=== PATIENT | male | born 1950 | race African-American/Black ===

== ENCOUNTER 2016-06-02 12:55 | Inpatient (IN) | payer MEDICARE, MEDICAID ==
[~2016-06-02] VITALS: Ht 170.2 cm; Wt 90.7 kg
[~2016-06-02 12:55] MED LIST: CARV6.2548 PO; CITA10SO6 PO; CLON0.1P2 TD; CLOP75TA33 PO; HYDR100T26 PO; SIMV20TA6 PO
[2016-06-02 15:32] LABS: BASOPHILS % 0.7 % (0.0-2.0); EOSINOPHILS % 2.1 % (0.0-5.0); HEMATOCRIT. 33.9 % (42.0-52.0); HEMOGLOBIN. 11.3 g/dL (14.0-18.0); LYMPHOCYTES % 12.4 % (20.0-50.0); MEAN CORPUSCULAR HEMOGLOBIN 30.6 pg (28.0-32.0); MEAN CORPUSCULAR HGB CONC 33.3 g/dL (31.0-37.0); MEAN CORPUSCULAR VOLUME 92.1 fL (80.0-94.0); MEAN PLATELET VOLUME 9.8 fl (7.4-10.4); MONOCYTES % 6.5 % (2.0-8.0); NEUTROPHILS % 78.3 % (40.0-76.0); PLATELET 79 x1000/uL (130-400); RED BLOOD CELL COUNT 3.68 mill/uL (4.7-6.1); RED CELL DISTRIBUTION WIDTH 15.7 % (11.6-14.6); WHITE BLOOD COUNT 7.8 x1000/uL (4.5-11.0)
[2016-06-02 15:39] LABS: INR 1.1; PARTIAL THROMBOPLASTIN TIME 27.8 sec (24.0-34.0); PROTHROMBIN TIME 11.6 sec
[2016-06-02 15:45] LABS: ALANINE AMINOTRANSFERASE 9 IU/L (13-61); ALBUMIN 2.8 g/dL (3.4-5.0); ANION GAP 14; CALCIUM 8.3 mg/dL (8.5-10.1); CARBON DIOXIDE 31 mEq/L (21-32); CHLORIDE 93 mEq/L (98-107); INDEX HEMOLYSI 3 (1-3); INDEX ICTERIC 1 (1-4); INDEX LIPEMIC 1 (1-3); LIPASE 143 IU/L (73-393); UREA NITROGEN BLOOD 13 mg/dL (7-21)
[2016-06-02 15:50] LABS: CREATINE KINASE 55 IU/L (39-308); NT PRO B-TYPE NATRIURETIC PEP 24393 pg/mL (5-125); TROPONIN I 0.06 ng/mL (0.00-0.04); eGFR 22 mL/min (>60)
[2016-06-02] MEDS ORDERED: ONDANSETRON HCL 4MG/2ML VIAL IV ONE (16:00)
[2016-06-02] MEDS ORDERED: ASPIRIN 325MG EC TABLET PO ONE (16:30)
[2016-06-02 19:30] VITALS: BP 152/79
[2016-06-02 20:00] VITALS: BP 152/70
[2016-06-02] MEDS ORDERED: SEVE800T8 PO (20:07)
[2016-06-02] MEDS ORDERED: LORAZEPAM 2MG/ML CPJ IV PRN (22:00)
[2016-06-02] MEDS ORDERED: ACETAMINOPHEN 650MG/20.3ML UDC GT PRN (22:00)
[2016-06-02] MEDS ORDERED: HYDROMORPHONE HCL/PF 2MG/ML CPJ IV PRN (22:00)
[2016-06-02] MEDS ORDERED: ONDANSETRON HCL 4MG/2ML VIAL IV PRN (22:00)
[2016-06-02] MEDS: CARVEDILOL 6.25 MG TABLET PO SCH (22:11)
[2016-06-03] VITALS: BP 154/83
[2016-06-03 04:00] VITALS: BP 166/72
[2016-06-03 05:59] LABS: BASOPHILS % 0.7 % (0.0-2.0); EOSINOPHILS % 8.5 % (0.0-5.0); HEMOGLOBIN. 9.5 g/dL (14.0-18.0); LYMPHOCYTES % 30.6 % (20.0-50.0); MEAN CORPUSCULAR HEMOGLOBIN 29.7 pg (28.0-32.0); MEAN CORPUSCULAR HGB CONC 32.7 g/dL (31.0-37.0); MEAN CORPUSCULAR VOLUME 90.9 fL (80.0-94.0); MEAN PLATELET VOLUME 9.5 fl (7.4-10.4); MONOCYTES % 11.3 % (2.0-8.0); NEUTROPHILS % 48.9 % (40.0-76.0); PLATELET 77 x1000/uL (130-400); RED BLOOD CELL COUNT 3.19 mill/uL (4.7-6.1); WHITE BLOOD COUNT 5.8 x1000/uL (4.5-11.0)
[2016-06-03 07:04] LABS: CALCIUM 8.4 mg/dL (8.5-10.1); MAGNESIUM 2.4 mg/dL (1.8-2.4); TROPONIN I 0.07 ng/mL (0.00-0.04)
[2016-06-03 08:00] VITALS: BP 160/65
[2016-06-03] MEDS ORDERED: ENOXAPARIN 30MG/0.3ML SYR SUBCUT SCH (09:00)
[2016-06-03] MEDS: SEVELAMER CARBONATE 800 MG TABLET PO SCH ×3 (09:23→17:14)
[2016-06-03] MEDS: CARVEDILOL 6.25 MG TABLET PO SCH (09:23)
[2016-06-03] MEDS: HYDRALAZINE HCL 100MG TABLET PO SCH ×3 (09:23→17:14)
[2016-06-03] MEDS: CLOPIDOGREL 75MG TABLET PO SCH (09:23)
[2016-06-03 12:00] VITALS: BP 156/68
[2016-06-03] MEDS ORDERED: VANCOMYCIN 1500MG in DEXTROSE 5% WATER 250ML IV SCH (14:00)
[2016-06-03 16:00] VITALS: BP 149/68
[2016-06-03 20:05] VITALS: BP 158/72
[2016-06-04] VITALS (7 sets, daily range): BP systolic 132–176; BP diastolic 75–95
[2016-06-04] MEDS: HYDRALAZINE HCL 100MG TABLET PO SCH ×3 (05:57→16:49)
[2016-06-04] MEDS ORDERED: CLONIDINE 0.1MG TABLET PO PRN ×2 (07:30→12:00)
[2016-06-04] MEDS: SEVELAMER CARBONATE 800 MG TABLET PO SCH ×3 (09:07→16:51)
[2016-06-04] MEDS: CLONIDINE 0.1MG TABLET PO SCH ×2 (09:09→21:00)
[2016-06-04] MEDS: CARVEDILOL 6.25 MG TABLET PO SCH (09:09)
[2016-06-04] MEDS: CLOPIDOGREL 75MG TABLET PO SCH (09:09)
[2016-06-04 09:50] LABS: T4 FREE 1.35 ng/dL (0.76-1.46); THYROID STIMULATING HORMONE 1.2 uIU/mL (0.36-3.74)
[2016-06-04] MEDS: LOSARTAN POTASSIUM 100 MG TABLET PO SCH (10:50)
[2016-06-04 16:21] LABS: CREATINE KINASE MB FRACTION 1.1 ng/mL (0.5-3.6); TROPONIN I 0.05 ng/mL (0.00-0.04)
[2016-06-04] MEDS ORDERED: EPOETIN ALFA 4000UNITS/ML VIAL SUBCUT SCH (21:00)
[2016-06-04] MEDS: ASCORBIC ACID 250 MG TABLET PO SCH (21:38)
[2016-06-05] VITALS: BP 146/65
[2016-06-05 00:10] LABS: CREATINE KINASE MB FRACTION 1.3 ng/mL (0.5-3.6); TROPONIN I 0.05 ng/mL (0.00-0.04)
[2016-06-05 04:00] VITALS: BP 157/84
[2016-06-05 06:33] LABS: EOSINOPHILS % 10.9 % (0.0-5.0); HEMATOCRIT. 29.6 % (42.0-52.0); HEMOGLOBIN. 9.7 g/dL (14.0-18.0); LYMPHOCYTES % 24.7 % (20.0-50.0); MEAN CORPUSCULAR HGB CONC 32.6 g/dL (31.0-37.0); MEAN CORPUSCULAR VOLUME 91.9 fL (80.0-94.0); MEAN PLATELET VOLUME 9.6 fl (7.4-10.4); MONOCYTES % 10.6 % (2.0-8.0); NEUTROPHILS % 52.8 % (40.0-76.0); PLATELET 96 x1000/uL (130-400); RED BLOOD CELL COUNT 3.23 mill/uL (4.7-6.1); RED CELL DISTRIBUTION WIDTH 15.9 % (11.6-14.6)
[2016-06-05 06:51] LABS: CALCIUM 8.6 mg/dL (8.5-10.1); CREATINE KINASE MB FRACTION 0.7 ng/mL (0.5-3.6); PHOSPHORUS 3.3 mg/dL (2.5-4.9); TROPONIN I 0.04 ng/mL (0.00-0.04)
[2016-06-05 08:00] VITALS: BP 144/71
[2016-06-05] MEDS: SEVELAMER CARBONATE 800 MG TABLET PO SCH ×2 (08:39→13:29)
[2016-06-05] MEDS: CLONIDINE 0.1MG TABLET PO SCH (08:39)
[2016-06-05] MEDS: ASCORBIC ACID 250 MG TABLET PO SCH (08:40)
[2016-06-05] MEDS: HYDRALAZINE HCL 100MG TABLET PO SCH ×2 (08:40→13:32)
[2016-06-05] MEDS: CARVEDILOL 6.25 MG TABLET PO SCH (08:40)
[2016-06-05] MEDS: LOSARTAN POTASSIUM 100 MG TABLET PO SCH (08:40)
[2016-06-05] MEDS: CLOPIDOGREL 75MG TABLET PO SCH (08:40)
[2016-06-05] MEDS ORDERED: ZINC SULFATE 220 MG ( 50 ) CAPSULE PO SCH (09:00)
[2016-06-05] MEDS ORDERED: FOLIC ACID/VITAMIN B COMP W-C TABLET PO SCH (09:00)
[2016-06-05] MEDS ORDERED: CLON0.1T14 PO (10:17)
[2016-06-05] MEDS ORDERED: LOSA100T11 PO (10:17)
[2016-06-05] MEDS ORDERED: NEPVIT PO (10:17)
[2016-06-05 11:29] VITALS: BP 149/89
[2016-06-05 12:00] VITALS: BP 145/83
[2016-06-05] MEDS ORDERED: VANCOMYCIN 1 G PREMIX 200 ML IV SCH (18:00)
== END 2016-06-05 13:50 | disposition home or self-care (01) | DRG 314 ==
LOC: ER 13:10 → 7WST 17:09
PROVIDERS: ADMIT Internal Medicine Nephrology; ATTEND Internal Medicine Nephrology
PROC: 5A1D60Z (ICD-10-PCS; principal; 2016-06-04)
DX: T82.838A Hemorrhage due to vascular prosthetic devices, implants and grafts, initial encounter (principal); N18.6 End stage renal disease; I12.0 Hypertensive chronic kidney disease with stage 5 chronic kidney disease or end stage renal disease; I42.9 Cardiomyopathy, unspecified; D63.8 Anemia in other chronic diseases classified elsewhere; D69.6 Thrombocytopenia, unspecified; E11.22 Type 2 diabetes mellitus with diabetic chronic kidney disease; I25.10 Atherosclerotic heart disease of native coronary artery without angina pectoris; E78.5 Hyperlipidemia, unspecified; Y84.1 Kidney dialysis as the cause of abnormal reaction of the patient, or of later complication, without mention of misadventure at the time of the procedure; F03.90 Unspecified dementia, unspecified severity, without behavioral disturbance, psychotic disturbance, mood disturbance, and anxiety; I27.2 Other secondary pulmonary hypertension; I35.0 Nonrheumatic aortic (valve) stenosis; Z99.2 Dependence on renal dialysis; Z86.73 Personal history of transient ischemic attack (TIA), and cerebral infarction without residual deficits; Z86.79 Personal history of other diseases of the circulatory system; Z79.899 Other long term (current) drug therapy
CPT/HCPCS: 36415; 71010; 80048; 80053; 80061; 80202; 82550; 82553; 82962; 83036; 83605; 83690; 83735; 83880; 84100; 84439; 84443; 84484; 85025; 85379; 85610; 85730; 87040; 93005; 93306; 99285; J0885; J3370; J7060

== ENCOUNTER 2020-01-25 10:57 | Inpatient (IN) | payer MEDICARE, MEDICAID ==
[~2020-01-25] VITALS: Ht 177.8 cm; Wt 66.7 kg
[~2020-01-25 10:57] MED LIST changes: -CARV6.2548 PO; -CITA10SO6 PO; -CLON0.1P2 TD; +CLON0.1T14 PO; -CLOP75TA33 PO; +HYDR100T26 MT; -HYDR100T26 PO; +LOSA100T3 PO; +NEPVIT PO; +SIMV10TA97 MT; -SIMV20TA6 PO
[2020-01-25] MEDS ORDERED: SODIUM CHLORIDE 0.9% 1,000 ML IV ONE (12:00)
[2020-01-25 12:38] LABS: HEMATOCRIT. 33.9 % (42.0-52.0); HEMOGLOBIN. 11.2 g/dL (14.0-18.0); MEAN CORPUSCULAR HEMOGLOBIN 32.7 pg (28.0-32.0); MEAN CORPUSCULAR VOLUME 98.6 fL (80.0-94.0); PLATELET 100 x1000/uL (130-400); RED BLOOD CELL COUNT 3.44 mill/uL (4.7-6.1); RED CELL DISTRIBUTION WIDTH 15.3 % (11.6-14.6)
[2020-01-25 12:44] LABS: CHLORIDE 98 mEq/L (98-107)
[2020-01-25 13:21] LABS: PLATELET ESTIMATE SLIGHTLY DECREASED
[2020-01-25] MEDS ORDERED: ASPIRIN 325MG EC TABLET PO ONE (15:15)
[2020-01-25] MEDS ORDERED: PIPERACILLIN/TAZ 3.375G PREMIX 50 ML IV ONE (15:30)
[2020-01-25] MEDS ORDERED: VANCOMYCIN 1 G PREMIX 200 ML IV ONE (15:30)
[2020-01-26] MEDS ORDERED: LORAZEPAM 2MG/ML CPJ IV PRN (09:15)
[2020-01-26] MEDS ORDERED: HYDROCODONE/ACETAMINOPHEN 5/325MG TABLET PO PRN (09:15)
[2020-01-26] MEDS ORDERED: MAGNESIUM/ALUMINUM HYDROXIDE/SIMETHICONE 30ML UDC PO PRN (09:15)
[2020-01-26] MEDS ORDERED: ONDANSETRON HCL 4MG/2ML INJ IV PRN (09:15)
[2020-01-26] MEDS ORDERED: IPRATROPIUM/ALBUTEROL 0.5-3(2.5)MG/3ML NEB NEB PRN (09:15)
[2020-01-26] MEDS: ENOXAPARIN 30MG/0.3ML SYR SUBCUT SCH ×2 (10:00→10:26)
[2020-01-26] MEDS: THIAMINE HCL 100MG TABLET PO SCH (10:36)
[2020-01-26] MEDS ORDERED: CEFTRIAXONE 1 G PREMIX 50 ML IV SCH (12:00)
[2020-01-26 12:51] VITALS: BP 174/72
[2020-01-26 13:00] VITALS: BP 174/72
[2020-01-26] MEDS: HYDRALAZINE HCL 100MG TABLET PO SCH (14:00)
[2020-01-26] MEDS ORDERED: HYDRALAZINE HCL 25MG TABLET PO SCH (14:00)
[2020-01-26] MEDS: LOSARTAN POTASSIUM 100 MG TABLET PO SCH (14:30)
[2020-01-26 16:00] VITALS: BP 156/65
[2020-01-26] MEDS: AZITHROMYCIN 250 MG TABLET PO SCH (16:37)
[2020-01-26] MEDS ORDERED: CEFTRIAXONE 1,000 MG in DEXTROSE 5% WATER 50 ML IV SCH (17:00)
[2020-01-26 20:00] VITALS: BP 154/52
[2020-01-26] MEDS ORDERED: VANCOMYCIN 500 MG PREMIX 100 ML IV NR (20:00)
[2020-01-27] VITALS: BP_SYST 139; BP_SYST 156; BP_DIAS 54; BP_DIAS 66
[2020-01-27] MEDS: HYDRALAZINE HCL 100MG TABLET PO SCH ×4 (01:04→22:16)
[2020-01-27 04:00] VITALS: BP 156/66
[2020-01-27 07:46] VITALS: BP 155/81
[2020-01-27] MEDS: AZITHROMYCIN 250 MG TABLET PO SCH ×2 (09:00→09:29)
[2020-01-27] MEDS: LOSARTAN POTASSIUM 100 MG TABLET PO SCH ×2 (09:00→09:29)
[2020-01-27] MEDS: THIAMINE HCL 100MG TABLET PO SCH (09:00)
[2020-01-27 09:39] LABS: HEMATOCRIT. 30.5 % (42.0-52.0); MEAN CORPUSCULAR HEMOGLOBIN 32.1 pg (28.0-32.0); MEAN CORPUSCULAR VOLUME 97.5 fL (80.0-94.0); MEAN PLATELET VOLUME 8.8 fl (7.4-10.4); PLATELET 144 x1000/uL (130-400); RED BLOOD CELL COUNT 3.13 mill/uL (4.7-6.1); RED CELL DISTRIBUTION WIDTH 15.9 % (11.6-14.6)
[2020-01-27 10:20] LABS: PLATELET ESTIMATE NORMAL
[2020-01-27 12:00] VITALS: BP 147/45
[2020-01-27] MEDS ORDERED: VANCOMYCIN 500 MG PREMIX 100 ML IV NR (12:00)
[2020-01-27] MEDS ORDERED: POTASSIUM CHLORIDE INJ 40 MEQ in DEXT 5% WATER 250 ML IV SCH (13:00)
[2020-01-27] MEDS ORDERED: DIATR MEGLU/DIATRIZOATE SOLN 30ML PO SCH (15:45)
[2020-01-27 16:00] VITALS: BP 138/38
[2020-01-27 20:00] VITALS: BP 159/50
[2020-01-27] MEDS ORDERED: CEFTRIAXONE 1,000 MG in DEXTROSE 5% WATER 50 ML IV SCH (21:00)
[2020-01-28] VITALS: BP 133/44
[2020-01-28 04:00] VITALS: BP 137/51
[2020-01-28 06:53] LABS: HEMOGLOBIN. 9.9 g/dL (14.0-18.0); MEAN CORPUSCULAR HEMOGLOBIN 32.3 pg (28.0-32.0); MEAN CORPUSCULAR VOLUME 97.7 fL (80.0-94.0); MEAN PLATELET VOLUME 8.9 fl (7.4-10.4); PLATELET 123 x1000/uL (130-400); RED BLOOD CELL COUNT 3.08 mill/uL (4.7-6.1)
[2020-01-28] MEDS: HYDRALAZINE HCL 100MG TABLET PO SCH ×3 (07:03→21:02)
[2020-01-28 08:00] VITALS: BP 138/65
[2020-01-28] MEDS: THIAMINE HCL 100MG TABLET PO SCH (09:25)
[2020-01-28] MEDS: LOSARTAN POTASSIUM 100 MG TABLET PO SCH (09:25)
[2020-01-28] MEDS: AZITHROMYCIN 250 MG TABLET PO SCH (09:25)
[2020-01-28 11:30] LABS: PLATELET ESTIMATE SLIGHTLY DECREASED
[2020-01-28 12:00] VITALS: BP 132/71
[2020-01-28] MEDS: ACETYLCYSTEINE 100MG/ML 10% VIAL 4ML INH SCH ×2 (12:42→21:47)
[2020-01-28] MEDS: IPRATROPIUM/ALBUTEROL 0.5-3(2.5)MG/3ML NEB HHN SCH ×2 (12:42→21:47)
[2020-01-28] MEDS ORDERED: BISACODYL 10MG SUPP PR NR (13:00)
[2020-01-28] MEDS ORDERED: LACTULOSE 20G/30ML UDC PO SCH (14:00)
[2020-01-28 16:00] VITALS: BP 131/51
[2020-01-28] MEDS: CEFEPIME 1,000 MG in DEXTROSE 5% WATER 50 ML IV SCH (17:59)
[2020-01-28 20:00] VITALS: BP 138/57
[2020-01-29] VITALS (7 sets, daily range): BP systolic 112–155; BP diastolic 40–78
[2020-01-29] MEDS: IPRATROPIUM/ALBUTEROL 0.5-3(2.5)MG/3ML NEB HHN SCH ×4 (02:31→21:44)
[2020-01-29] MEDS: HYDRALAZINE HCL 100MG TABLET PO SCH ×3 (05:57→20:51)
[2020-01-29 06:40] LABS: HEMATOCRIT. 28.9 % (42.0-52.0); HEMOGLOBIN. 9.8 g/dL (14.0-18.0); MEAN CORPUSCULAR VOLUME 96.9 fL (80.0-94.0); MEAN PLATELET VOLUME 8.4 fl (7.4-10.4); PLATELET 149 x1000/uL (130-400); RED BLOOD CELL COUNT 2.98 mill/uL (4.7-6.1)
[2020-01-29] MEDS: ACETYLCYSTEINE 100MG/ML 10% VIAL 4ML INH SCH ×3 (07:52→21:44)
[2020-01-29] MEDS: AZITHROMYCIN 250 MG TABLET PO SCH (08:44)
[2020-01-29] MEDS: LOSARTAN POTASSIUM 100 MG TABLET PO SCH (08:44)
[2020-01-29] MEDS: THIAMINE HCL 100MG TABLET PO SCH (08:44)
[2020-01-29 08:50] LABS: PLATELET ESTIMATE NORMAL
[2020-01-29] MEDS: CEFEPIME 1,000 MG in DEXTROSE 5% WATER 50 ML IV SCH (13:19)
[2020-01-29] MEDS ORDERED: VANCOMYCIN 750 MG PREMIX 150 ML IV SCH (18:00)
[2020-01-30] VITALS: BP 151/54
[2020-01-30] MEDS: IPRATROPIUM/ALBUTEROL 0.5-3(2.5)MG/3ML NEB HHN SCH ×4 (02:00→21:45)
[2020-01-30 04:00] VITALS: BP 139/50
[2020-01-30] MEDS: HYDRALAZINE HCL 100MG TABLET PO SCH ×3 (05:30→21:04)
[2020-01-30 07:30] LABS: HEMATOCRIT. 28.1 % (42.0-52.0); HEMOGLOBIN. 9.3 g/dL (14.0-18.0); MEAN CORPUSCULAR HEMOGLOBIN 32.7 pg (28.0-32.0); MEAN CORPUSCULAR VOLUME 98.5 fL (80.0-94.0); MEAN PLATELET VOLUME 8.8 fl (7.4-10.4); PLATELET 124 x1000/uL (130-400); RED BLOOD CELL COUNT 2.85 mill/uL (4.7-6.1); RED CELL DISTRIBUTION WIDTH 15.9 % (11.6-14.6)
[2020-01-30 08:00] VITALS: BP 146/47
[2020-01-30] MEDS: ACETYLCYSTEINE 100MG/ML 10% VIAL 4ML INH SCH ×3 (08:30→21:45)
[2020-01-30] MEDS: LOSARTAN POTASSIUM 100 MG TABLET PO SCH (09:56)
[2020-01-30] MEDS: AZITHROMYCIN 250 MG TABLET PO SCH (09:56)
[2020-01-30] MEDS: THIAMINE HCL 100MG TABLET PO SCH (09:56)
[2020-01-30 12:00] VITALS: BP 146/56
[2020-01-30] MEDS: CEFEPIME 1,000 MG in DEXTROSE 5% WATER 50 ML IV SCH (13:13)
[2020-01-30 14:17] LABS: PLATELET ESTIMATE SLIGHTLY DECREASED
[2020-01-30 16:00] VITALS: BP 106/50
[2020-01-30 20:00] VITALS: BP 156/56
[2020-01-31] VITALS: BP 147/59
[2020-01-31] MEDS: IPRATROPIUM/ALBUTEROL 0.5-3(2.5)MG/3ML NEB HHN SCH ×3 (02:43→14:31)
[2020-01-31 04:00] VITALS: BP 159/65
[2020-01-31] MEDS: HYDRALAZINE HCL 100MG TABLET PO SCH ×2 (05:35→14:38)
[2020-01-31 08:00] VITALS: BP 146/50
[2020-01-31] MEDS: LOSARTAN POTASSIUM 100 MG TABLET PO SCH (08:15)
[2020-01-31] MEDS: THIAMINE HCL 100MG TABLET PO SCH (08:22)
[2020-01-31 12:04] VITALS: BP 164/49
[2020-01-31] MEDS: CEFEPIME 1,000 MG in DEXTROSE 5% WATER 50 ML IV SCH (14:31)
[2020-01-31 16:00] VITALS: BP 133/76
[2020-01-31 16:14] VITALS: BP 133/76
== END 2020-01-31 16:05 | disposition home or self-care (01) | DRG 871 ==
LOC: ER 11:12 → 7EST 15:24 → EDBEDREQSVC 15:35 → EDBEDREQTM 15:46 → EDBEDREQ 15:46 → EDBEDREQSVC 01-26 09:54 → ENRESERV 01-26 12:03 → 8WST 01-26 18:47
PROVIDERS: ADMIT Internal Medicine Nephrology; ATTEND Internal Medicine Nephrology
PROC: 5A1D70Z Performance of Urinary Filtration, Intermittent, Less than 6 Hours Per Day (ICD-10-PCS; principal; 2020-01-27)
DX: A41.89 Other specified sepsis (principal); I21.A1 Myocardial infarction type 2; I50.33 Acute on chronic diastolic (congestive) heart failure; N18.6 End stage renal disease; J18.9 Pneumonia, unspecified organism; E44.0 Moderate protein-calorie malnutrition; I13.2 Hypertensive heart and chronic kidney disease with heart failure and with stage 5 chronic kidney disease, or end stage renal disease; G95.29 Other cord compression; B96.89 Other specified bacterial agents as the cause of diseases classified elsewhere; D69.6 Thrombocytopenia, unspecified; E11.22 Type 2 diabetes mellitus with diabetic chronic kidney disease; D64.9 Anemia, unspecified; E78.5 Hyperlipidemia, unspecified; E83.52 Hypercalcemia; F03.90 Unspecified dementia, unspecified severity, without behavioral disturbance, psychotic disturbance, mood disturbance, and anxiety; I25.10 Atherosclerotic heart disease of native coronary artery without angina pectoris; I27.20 Pulmonary hypertension, unspecified; M48.02 Spinal stenosis, cervical region; Z86.73 Personal history of transient ischemic attack (TIA), and cerebral infarction without residual deficits; B95.7 Other staphylococcus as the cause of diseases classified elsewhere; K56.41 Fecal impaction; R00.1 Bradycardia, unspecified; Z20.828 Contact with and (suspected) exposure to other viral communicable diseases; Z79.899 Other long term (current) drug therapy; Z95.1 Presence of aortocoronary bypass graft; Z99.2 Dependence on renal dialysis; Z68.21 Body mass index [BMI] 21.0-21.9, adult
CPT/HCPCS: 36415; 71045; 74176; 80048; 80053; 80202; 82550; 83605; 83615; 84145; 84484; 85025; 85651; 86140; 87077; 87186; 87635; 92610; 93005; 93306; 99291; J0692; J0696; J1650; J2543; J3370; J3480; J7030; J7040; J7060; J7608; Q9963

== ENCOUNTER 2020-02-04 02:21 | Inpatient (IN) | payer MEDICARE, MEDICAID ==
[~2020-02-04] VITALS: Ht 154.9 cm; Wt 49.0 kg
[2020-02-04] MEDS ORDERED: SODIUM CHLORIDE 0.9% 250 ML IV ONE (03:15)
[2020-02-04 03:36] LABS: BASOPHILS % 0.6 % (0.0-2.0); EOSINOPHILS % 2.3 % (0.0-5.0); HEMATOCRIT. 30.9 % (42.0-52.0); HEMOGLOBIN. 10.2 g/dL (14.0-18.0); MEAN CORPUSCULAR HEMOGLOBIN 31.8 pg (28.0-32.0); MEAN CORPUSCULAR VOLUME 96.1 fL (80.0-94.0); MONOCYTES % 8.3 % (2.0-8.0); NEUTROPHILS % 80.8 % (40.0-76.0); PLATELET 122 x1000/uL (130-400); RED BLOOD CELL COUNT 3.21 mill/uL (4.7-6.1); RED CELL DISTRIBUTION WIDTH 15.9 % (11.6-14.6)
[2020-02-04 03:51] LABS: CHLORIDE 106 mEq/L (98-107)
[2020-02-04] MEDS ORDERED: LEVOFLOXACIN 500MG PREMIX 100 ML IV ONE (05:00)
[2020-02-04 09:40] VITALS: BP 120/60
[2020-02-04 12:00] VITALS: BP 108/61
[2020-02-04] MEDS ORDERED: ONDANSETRON HCL 4MG/2ML INJ IV PRN (12:30)
[2020-02-04] MEDS ORDERED: ACETAMINOPHEN 325MG TABLET PO PRN (12:30)
[2020-02-04] MEDS ORDERED: VANCOMYCIN 1 G PREMIX 200 ML IV NR (13:00)
[2020-02-04] MEDS ORDERED: HYDRALAZINE HCL 100MG TABLET PO SCH (14:00)
[2020-02-04 14:51] VITALS: BP 120/60
[2020-02-04 16:00] VITALS: BP 115/53
[2020-02-04 18:32] VITALS: BP 119/61
== END 2020-02-04 19:35 | DRG 291 ==
LOC: ER 02:21 → 8WST 04:03 → ENRESERV 07:17
PROVIDERS: ADMIT Internal Medicine; ATTEND Internal Medicine
PROC: 5A1D70Z Performance of Urinary Filtration, Intermittent, Less than 6 Hours Per Day (ICD-10-PCS; principal; 2020-02-04)
DX: I13.2 Hypertensive heart and chronic kidney disease with heart failure and with stage 5 chronic kidney disease, or end stage renal disease (principal); E43 Unspecified severe protein-calorie malnutrition; I50.33 Acute on chronic diastolic (congestive) heart failure; N18.6 End stage renal disease; D64.9 Anemia, unspecified; D69.6 Thrombocytopenia, unspecified; E11.22 Type 2 diabetes mellitus with diabetic chronic kidney disease; E78.00 Pure hypercholesterolemia, unspecified; F03.90 Unspecified dementia, unspecified severity, without behavioral disturbance, psychotic disturbance, mood disturbance, and anxiety; I16.0 Hypertensive urgency; I25.10 Atherosclerotic heart disease of native coronary artery without angina pectoris; I27.20 Pulmonary hypertension, unspecified; J44.9 Chronic obstructive pulmonary disease, unspecified; M48.02 Spinal stenosis, cervical region; Z74.01 Bed confinement status; Z86.73 Personal history of transient ischemic attack (TIA), and cerebral infarction without residual deficits; Z95.1 Presence of aortocoronary bypass graft; Z99.2 Dependence on renal dialysis; Z68.20 Body mass index [BMI] 20.0-20.9, adult; R05 Cough
CPT/HCPCS: 36415; 71045; 80053; 83880; 84484; 85025; 93005; 99291; J1956; J3370; J7050